=== PATIENT | female | born 1980 | race Hispanic/Latino ===

== ENCOUNTER 2018-01-06 20:00 | Observation (INO) | payer BC ==
[~2018-01-06] VITALS: Ht 157.5 cm; Wt 65.5 kg
[2018-01-06] MEDS ORDERED: SODIUM CHLORIDE 0.9% 1000ML 1,000 ML IV STA (20:41)
[2018-01-06] MEDS ORDERED: BELLADONNA ALK/PHENOBARBITAL 5 ML UDC ONE (20:52)
[2018-01-06] MEDS ORDERED: LIDOCAINE VISC 2% SOLN 15 ML UDC PO ONE (21:00)
[2018-01-06] MEDS ORDERED: ONDANSETRON HCL INJ 2 MG/ML VIAL IV ONE (21:00)
[2018-01-06] MEDS ORDERED: MORPHINE SULFATE INJ 4 MG/ML INJ IV ONE (21:00)
[2018-01-06] MEDS ORDERED: MAGNESIUM/ALUMINUM/SIMETHICONE 30 ML UDC PO ONE (21:00)
[2018-01-06] MEDS: BELLADONNA ALK/PHENOBARBITAL 5 ML UDC PO SCH (21:19)
[2018-01-06 21:35] LABS: BASOPHILS # (AUTO) 0.1 (0.0-0.1); BASOPHILS % 0.6 % (0.0-1.0); EOSINOPHILS % 0.3 % (0.0-6.0); HEMATOCRIT 40.7 % (34.2-44.1); LYMPHOCYTES # (AUTO) 0.4 (1.0-3.2); LYMPHOCYTES % 3.9 % (18.0-39.1); MEAN CORPUSCULAR HEMOGLOBIN 30.2 pg (28-32); MEAN CORPUSCULAR HGB CONC 34.4 g/dL (31-35); MEAN CORPUSCULAR VOLUME 87.9 fL (81-99); MONOCYTES # (AUTO) 0.5 (0.2-0.8); MONOCYTES % 4.5 % (4.4-11.3); NEUTROPHILS # (AUTO) 9.5 (2.1-6.9); NEUTROPHILS % 90.4 % (38.7-80.0); PLATELET COUNT 239 x10e3/uL (140-360); RED BLOOD COUNT 4.63 x10e6/uL (3.6-5.1); RED CELL DISTRIBUTION WIDTH 12.5 % (11.7-14.4)
[2018-01-06 21:50] LABS: ALANINE AMINOTRANSFERASE 425 IU/L (0-55); ALBUMIN 4.3 g/dL (3.5-5.0); ALBUMIN/GLOBULIN RATIO 1.4 (0.8-2.0); ALKALINE PHOSPHATASE 116 IU/L (40-150); AMYLASE 59 U/L (25-125); ANION GAP 14.6 mmol/L (8-16); BLOOD UREA NITROGEN 12 mg/dL (7-26); BUN/CREATININE RATIO 15 (6-25); CALCIUM 9.2 mg/dL (8.4-10.2); CARBON DIOXIDE 21 mmol/L (22-29); CHLORIDE 100 mmol/L (98-107); CREATINE KINASE 91 IU/L (29-168); CREATININE, SERUM 0.81 mg/dL (0.57-1.11); EST GLOMERULAR FILTRATION RATE > 60 ML/MIN (60-); GLUCOSE 153 mg/dL (74-118); LIPASE 40 U/L (8-78); POTASSIUM 3.6 mmol/L (3.5-5.1); SODIUM 132 mmol/L (136-145)
--- NOTE | 2018-01-06 22:39 | Diagnostic Imaging Report ---
EXAM: US GALLBLADDER DATE: 01/06/2018 8:41 PM INDICATION: Abdominal pain, COMPARISON: None TECHNIQUE: Transverse and longitudinal castillo scale and color doppler sonographic images of the upper abdomen were obtained. FINDINGS: LIVER 13 cm in the right midclavicular line. Increased echogenicity, normal contour, no masses. GALLBLADDER Contracted gallbladder limiting evaluation. No obvious stones or sludge. No pericholecystic fluid. Gallbladder wall measures borderline enlarged at 3 mm, which may be related to contracted state. Negative sonographic Yoder's sign. BILE DUCTS No intra nor extra-hepatic biliary dilation. Common bile duct measures 0.6 cm PANCREAS: Visualized portions are normal. RIGHT KIDNEY: 9.1 cm Echogenicity: Normal Collecting System: No hydronephrosis Stones: None Cyst/Mass: None VESSELS: Aorta: Visualized portions are within normal size limits Inferior Vena Cava: Visualized portions are normal Main Portal Vein: 1.1 cm, normal size with hepatopetal flow. FREE FLUID: None IMPRESSION: 1. Hepatic steatosis. 2. Contracted gallbladder without evidence of acute cholecystitis. Signed by: Dr Kristina Jaquez MD on 01/06/2018 10:35 PM
[2018-01-06 22:44] LABS: BILIRUBIN,URINE NEGATIVE (NEGATIVE); CLARITY,URINE CLEAR (CLEAR); COLOR,URINE YELLOW (YELLOW); LEUKOCYTE ESTERASE ,URINE NEGATIVE (NEGATIVE); NITRITE,URINE NEGATIVE (NEGATIVE); PROTEIN,URINE DIPSTICK NEGATIVE (NEGATIVE); URINE UROBILINOGEN 0.2 mg/dL (0.2 - 1)
[2018-01-06 22:45] LABS: KETONES,URINE TRACE (NEGATIVE)
[2018-01-06 22:46] LABS: PREGNANCY TEST, URINE NEGATIVE (NEGATIVE)
[2018-01-06 23:03] LABS: BACTERIA,URINE MODERATE /HPF; EPITHELIAL CELLS,URINE FEW /LPF; MUCUS,URINE MODERATE (RARE); RBC,URINE 21-50 /HPF (0-5)
[2018-01-07] MEDS ORDERED: ONDANSETRON HCL INJ 2 MG/ML VIAL IV PRN
[2018-01-07] MEDS ORDERED: MORPHINE SULFATE 2 MG/ML SYR IV PRN
[2018-01-07] MEDS: SODIUM CHLORIDE 0.9% 1000ML 1,000 ML IV SCH ×4 (00:24→16:14)
--- OUTSIDE RECORDS SUMMARY | 2018-01-07 01:46 | XMS REPORT ---
[facility] Address Unknown Phone Unavailable Care Team Providers Care Zigzag Stitcher Name Role Phone RILEY Tarsha MARCE Unavailable Unavailable Problems This patient has no known problems. Allergies, Adverse Reactions, Alerts This patient has no known allergies or adverse reactions. Medications This patient has no known medications. Results Test Description Test Time Test Comments Text Results Atomic Results Result Comments US GALLBLADDER 2018-01-06 22:32:00 [place] [address] Patient Name: BRAD BHAKTA MR #: [id number] : 1980 Age/Sex: 37/F Req #: [id number] Adm Physician: Ordered by: ROBBIE PLASENCIA IT SECURITY CONSULTANT Report #: [id number] Location: ER Room/Bed: Procedure: [id number] US/US GALLBLADDER Exam Date: Exam Time: REPORT STATUS: Signed EXAM: US GALLBLADDER DATE: 01/06/2018 8:41 PM INDICATION: Abdominal pain, COMPARISON: None TECHNIQUE: Transverse and longitudinal castillo scale and color doppler sonographic images of the upper abdomen were obtained. FINDINGS: LIVER 13 cm in the right midclavicular line. Increased echogenicity, normal contour, no masses. GALLBLADDER Contracted gallbladder limiting evaluation. No obvious stones or sludge. No pericholecystic fluid. Gallbladder wall measures borderline enlarged at 3 mm, which may be related to contracted state. Negative sonographic Yoder's sign. BILE DUCTS No intra nor extra-hepatic biliary dilation. Common bile duct measures 0.6 cm PANCREAS: Visualized portions are normal. RIGHT KIDNEY: 9.1 cm Echogenicity: Normal Collecting System: No hydronephrosis Stones: None Cyst/Mass: None VESSELS: Aorta: Visualized portions are within normal size limits Inferior Vena Cava: Visualized portions are normal Main Portal Vein: 1.1 cm, normal size with hepatopetal flow. FREE FLUID: None IMPRESSION: 1. Hepatic steatosis. 2. Contracted gallbladder without evidence of acute cholecystitis. Signed by: Dr Aziza Jaquez MD on 01/06/2018 10:35 PM Dictated By: AZIZA JAQUEZ MD 34 Transcribed By: DOMENIC on 01/06/182234 COPY TO: ROBBIE PLASENCIA NP
--- NOTE | 2018-01-07 06:16 | History and Physical ---
REASONS FOR ADMISSION 1. Elevated transaminase levels. 2. Abdominal pain. HISTORY OF PRESENT ILLNESS: Patient is a 37-year-old healthy female, who was in normal state of health, where she ate a salad and then, a short time after that, she had some nausea and abdominal pain, midepigastric area with some associated diarrhea x2, but no blood, no fever, no vomiting. She has had no further symptoms, only continuation of some of the abdominal pain, which is much better at this moment. While in the emergency room, she was noted to have some elevated liver function tests and abdominal ultrasound was gallbladder sludging, but no evidence of gallstones, so she has been admitted for further evaluation and treatment. PAST MEDICAL HISTORY: Unremarkable. MEDICATIONS: None. ALLERGIES: NONE. SOCIAL: Nonsmoker, nondrinker. FAMILY HISTORY: Hypertension. PHYSICAL EXAM VITALS: She is 98.6, pulse 74, blood pressure 122/76, sats 100% on room air. GENERAL: In no apparent distress, lying in bed. NECK: Supple. No lymphadenopathy. CARDIOVASCULAR: Regular rate and rhythm. LUNGS: Clear to auscultation bilaterally. ABDOMEN: Soft, good bowel sounds. Slightly tender in the midepigastric area, but no peritoneal signs. EXTREMITIES: No clubbing, cyanosis. NEUROLOGIC: Nonfocal. ASSESSMENT AND PLAN 1. Abdominal pain. Continue with pain control, but does appear to be much better and will consult gastrointestinal. 2. Elevated liver function tests. Will continue to monitor and will also consult gastrointestinal to evaluate for this. Still possible concern for maybe some chronic cholecystitis and maybe hepatobiliary iminodiacetic acid scan may be warranted if patient does not improve. Please see hospital chart for full details. Job#: [id number]
[2018-01-07] MEDS ORDERED: SODIUM CHLORIDE 0.9% 500ML 500 ML IV ONE (07:45)
[2018-01-07 07:56] LABS: BASOPHILS % 0.6 % (0.0-1.0); EOSINOPHILS # (AUTO) 0.1 (0.0-0.4); EOSINOPHILS % 1.3 % (0.0-6.0); HEMATOCRIT 32.8 % (34.2-44.1); HEMOGLOBIN 11.2 g/dL (12.0-16.0); LYMPHOCYTES # (AUTO) 1.1 (1.0-3.2); MEAN CORPUSCULAR HEMOGLOBIN 30.1 pg (28-32); MEAN CORPUSCULAR HGB CONC 34.1 g/dL (31-35); MEAN CORPUSCULAR VOLUME 88.2 fL (81-99); MONOCYTES # (AUTO) 0.4 (0.2-0.8); MONOCYTES % 5.7 % (4.4-11.3); NEUTROPHILS # (AUTO) 4.6 (2.1-6.9); NEUTROPHILS % 74.1 % (38.7-80.0); PLATELET COUNT 214 x10e3/uL (140-360); RED BLOOD COUNT 3.72 x10e6/uL (3.6-5.1); RED CELL DISTRIBUTION WIDTH 12.5 % (11.7-14.4)
[2018-01-07 08:18] LABS: ALANINE AMINOTRANSFERASE 505 IU/L (0-55); ALBUMIN 3.2 g/dL (3.5-5.0); ALBUMIN/GLOBULIN RATIO 1.4 (0.8-2.0); ALKALINE PHOSPHATASE 91 IU/L (40-150); ANION GAP 9.6 mmol/L (8-16); BLOOD UREA NITROGEN 7 mg/dL (7-26); BUN/CREATININE RATIO 10 (6-25); CALCIUM 7.9 mg/dL (8.4-10.2); CARBON DIOXIDE 21 mmol/L (22-29); CHLORIDE 110 mmol/L (98-107); CREATININE, SERUM 0.72 mg/dL (0.57-1.11); EST GLOMERULAR FILTRATION RATE > 60 ML/MIN (60-); GLUCOSE 99 mg/dL (74-118); POTASSIUM 3.6 mmol/L (3.5-5.1); SODIUM 137 mmol/L (136-145)
[2018-01-07] MEDS: BELLADONNA ALK/PHENOBARBITAL 5 ML UDC PO SCH ×3 (10:05→21:00)
--- NOTE | 2018-01-07 11:57 | Diagnostic Imaging Report ---
EXAM: MR Abdomen WITHOUT Contrast Magnetic Resonance Cholangiopancreatography (M.R.C.P.) INDICATION: Elevated transaminase. Right upper quadrant pain. ^ABD PAIN ^Y COMPARISON: Ultrasound 01/06/2018 TECHNIQUE: Multiplanar and multisequence imaging was performed of the abdomen without contrast. M.R.C.P. Technique: Multiplanar, multisequence MRCP was performed, with sequences including coronal and axial thin slabs. Coronal thick slab. IV Contrast: None Oral Contrast: None Medications: None COMPLICATIONS: None FINDINGS: LOWER THORAX: Unremarkable. HEPATOBILIARY: Normal liver contour. No significant signal loss on out of phase images. No focal hepatic lesions. No biliary ductal dilation. MRCP sequences without filling defects in the common duct. GALLBLADDER: No filling defects. No wall thickening. SPLEEN: No splenomegaly. PANCREAS: No focal masses or ductal dilatation. ADRENALS: No adrenal nodules KIDNEYS/URETERS: Kidneys enhance symmetrically. No hydronephrosis. No cystic or solid mass lesions. GI TRACT: No abnormal distention, wall thickening, or evidence of bowel obstruction. LYMPH NODES: No lymphadenopathy. VESSELS: Limited evaluation. Preserved flow voids. PERITONEUM / RETROPERITONEUM: No free fluid. BONES: Unremarkable. SOFT TISSUES: Unremarkable. IMPRESSION: No evidence of choledocholithiasis or cholelithiasis. No biliary ductal dilatation. Signed by: DR. Albino Davis MD on 01/07/2018 11:53 AM
[2018-01-07 12:30] VITALS: BP 88/51
[2018-01-07 16:00] VITALS: BP 119/59
[2018-01-07 20:00] VITALS: BP 95/56
[2018-01-08] VITALS (7 sets, daily range): BP systolic 93–106; BP diastolic 53–63
[2018-01-08] MEDS: SODIUM CHLORIDE 0.9% 1000ML 1,000 ML IV SCH (08:28)
[2018-01-08] MEDS: BELLADONNA ALK/PHENOBARBITAL 5 ML UDC PO SCH ×3 (09:00→21:00)
--- NOTE | 2018-01-08 15:02 | Diagnostic Imaging Report ---
Hepatobiliary Scan with Gallbladder Ejection Fraction Clinical information: RUQ abdominal pain x 2 days; elevated transaminase Technique: Following intravenous administration of 6.0 millicuries of Tc-99m mebrofenin, dynamic images of the abdomen in the anterior projection were obtained through 60 minutes. Sincalide (CCK analog) 1.5 micrograms was administered intravenously over 30 minutes with additional imaging for determination of gallbladder ejection fraction. Discussion: Perfusion of the liver is normal. Extraction of tracer by the liver parenchyma is normal. Tracer appears promptly within the biliary tract. The gallbladder begins to fill at 45 minutes post injection of tracer and fills adequately. Tracer is seen in the small bowel by 15 minutes. There is no contractile response by the gallbladder to the pharmacologic dose of sincalide. No emptying of the gallbladder occurs during the 30 minute infusion. Impression: 1. Filling of the gallbladder excludes acute cystic duct obstruction/acute cholecystitis. 2. The gallbladder ejection fraction is undefined as there is no emptying of the gallbladder during the infusion of sincalide. This absence of a contractile response to sincalide supports the clinical diagnosis of chronic cholecystitis/gallbladder dyskinesia. Signed by: Dr. Kath Christian M.D. on 01/08/2018 2:59 PM
[2018-01-09] VITALS: BP 84/52
[2018-01-09] MEDS: SODIUM CHLORIDE 0.9% 1000ML 1,000 ML IV SCH (03:23)
[2018-01-09 04:00] VITALS: BP 89/54
[2018-01-09 06:58] LABS: ALANINE AMINOTRANSFERASE 225 IU/L (0-55); ALBUMIN 3.2 g/dL (3.5-5.0); ALBUMIN/GLOBULIN RATIO 1.3 (0.8-2.0); ALKALINE PHOSPHATASE 65 IU/L (40-150); ANION GAP 8.5 mmol/L (8-16); BLOOD UREA NITROGEN 7 mg/dL (7-26); BUN/CREATININE RATIO 10 (6-25); CARBON DIOXIDE 22 mmol/L (22-29); CHLORIDE 113 mmol/L (98-107); EST GLOMERULAR FILTRATION RATE > 60 ML/MIN (60-); GLUCOSE 104 mg/dL (74-118); POTASSIUM 3.5 mmol/L (3.5-5.1); SODIUM 140 mmol/L (136-145)
--- NOTE | 2018-01-09 07:45 | Consultation ---
DATE OF CONSULTATION: January 09, 2018 REFERRING PHYSICIAN: Dr. Urbano Terry. HISTORY OF PRESENT ILLNESS: Patient a 37-year-old female who presents with complaints of epigastric abdominal pain. She says she has had the pain for a few days. She has associated diarrhea. Evaluation while in the hospital has revealed abnormal HIDA scan with no emptying and no stimulation with Kinevac. Her gallbladder ultrasound did not reveal any gallstones, only contracted gallbladder and MRCP also did not reveal any gallstones. She was noted to have abnormal liver function tests with mildly elevated SGOT and SGPT as well as bilirubin. Patient says her pain is gone completely now. PAST MEDICAL HISTORY: Otherwise unremarkable. She denies chronic medical problems. She has not had previous surgery. ALLERGIES: THERE ARE NO KNOWN ALLERGIES. MEDICATIONS: There are no medications at home. FAMILY HISTORY: Noncontributory. SOCIAL HISTORY: The patient does not smoke cigarettes or drink alcohol. REVIEW OF SYSTEMS: As stated above. She has not had any definite fever. She did have diarrhea. PHYSICAL EXAMINATION VITALS: Normal. She is afebrile. GENERAL: The patient is awake and alert, in no distress. HEENT: No scleral icterus. NECK: No masses. LUNGS: Equal breath sounds, clear bilaterally. CARDIAC: Regular rate and rhythm with no murmur. ABDOMEN: Soft with no tenderness, no mass, no distention, and no organomegaly. EXTREMITIES: No edema. Pulses are palpable. NEUROLOGIC: Intact. ASSESSMENT AND RECOMMENDATIONS: A 37-year-old female with epigastric abdominal pain, which has now resolved. HIDA scan was abnormal but this could be secondary to whatever is causing her pain, which seems to be a viral syndrome or gastroenteritis. The HIDA scan was abnormal and liver function tests are abnormal, but with her being symptomatic, I think I would follow the patient now, repeat her chemistries, see if the liver function tests are normalized, but I would not recommend cholecystectomy at this time; however, if she starts on the diet and she has persistent epigastric pain suggestive of gallbladder disease, then she might benefit from surgery. This was explained to the patient. Thank you for asking me to see Ms. Mccoy. Job#: [id number] DILLON
[2018-01-09 08:01] VITALS: BP 92/54
[2018-01-09 08:54] VITALS: BP 92/54
[2018-01-09 09:14] VITALS: BP 115/58
--- NOTE | 2018-03-12 20:23 | Discharge Summary ---
DISCHARGE DIAGNOSES 1. Abdominal pain. 2. History of elevated liver tests. HISTORY OF PRESENT ILLNESS AND HOSPITAL COURSE: See hospital chart for full details. Patient is a 37-year-old lady who presented with abdominal pain, was seen by Dr. Ennis of where she had some elevated liver function tests. An ultrasound of the gallbladder did show a contracted gallbladder, but no stones. MRCP showed no evidence of choledocholithiasis. MRCP was negative. HIDA scan showed 0% ejection fraction. She was seen by surgery and since patient became asymptomatic and her abdominal pain resolved, she wanted to go ahead and follow up as an outpatient. So, patient was discharged home in good condition. Please see hospital chart for full details. HERBERT DEL CID MD Job#: [id number] LPA
== END 2018-01-09 09:31 | disposition home or self-care (01) ==
LOC: ER 20:00 → ERHOLD 23:56 → MED/SURG3 01-07 12:31
PROVIDERS: ADMIT Internal Medicine; ATTEND Internal Medicine
DX: R10.13 Epigastric pain (principal); R79.89 Other specified abnormal findings of blood chemistry; K76.0 Fatty (change of) liver, not elsewhere classified; R94.5 Abnormal results of liver function studies; K81.1 Chronic cholecystitis
CPT/HCPCS: 36415 ×3; 74181; 76705; 78227; 80053 ×3; 81001; 81025; 82150; 82550; 82553; 83690; 84484; 85025 ×2; 86644; 86645; 86663; 86664; 86665; 87086; 96361 ×2; 99284; A9537; G0378 ×4; J2270 ×2; J2405; J7030 ×4; J7040